=== PATIENT | female | born 2000 | race Two or more races ===

== ENCOUNTER 2023-07-11 14:36 | Outpatient (CLI) | payer BC ==
[2023-07-11 16:08] LABS: #Eosinphils 0.1 10x3/uL (0.0-0.5); #Monocytes 0.4 10x3/uL (0.0-1.1); #Neutrophils 2.8 10x3/uL (1.5-8.4); %Basophils 0.8 % (0.0-2.0); %Eosinophils 1.1 % (0.0-6.0); %Lymphocytes 38.1 % (18.0-47.0); %Monocytes 6.8 % (0.0-10.0); Hematocrit 36.7 % (34.9-44.5); Hemoglobin 12.1 g/dL (12.0-15.5); Mean Corpuscular Hemoglobin 31.9 pg (27.0-33.0); Mean Corpuscular Volume 96.8 fl (81.6-98.3); Mean Platelet Volume 12.1 fl (7.4-10.4); Platelet Count 209 10x3/uL (150-450); RBC Distribution Width 12.4 % (11.5-14.5); Red Blood Cell (RBC) Count 3.79 10x6/uL (3.90-5.03); White Blood Cell (WBC) Count 5.3 10x3/uL (3.5-10.5)
[2023-07-11 16:26] LABS: BHCG - Serum Negative (NEGATIVE); Pregs Control Background? CLEAR/WHITE (CLR/WHITE); Pregs Control Bar Appear? YES (CONTROL BAR)
[2023-07-11 16:38] LABS: ALT (SGPT) 22 U/L (8-55); AST (SGOT) 19 U/L (5-34); Albumin 4.6 g/dL (3.5-5.0); Alkaline Phosphatase 48 U/L (40-110); Anion Gap 12 mmol/L (10-20); BUN (Urea Nitrogen) 13 mg/dL (7.0-18.7); Bilirubin, Total 0.6 mg/dL (0.2-1.2); Calc. Creatinine Clearance 0 mL/min (70-130); Calcium 9.1 mg/dL (7.8-10.44); Carbon Dioxide 26 mmol/L (22-29); Chloride 106 mmol/L (98-107); Estimated GFR 104; Globulin 2.5 g/dL (2.4-3.5); Glucose 120 mg/dL (70-105); Potassium 4.2 mmol/L (3.5-5.1); Protein, Total 7.1 g/dL (6.0-8.3); Sodium 140 mmol/L (136-145)
== END 2023-07-11 14:37 | disposition home or self-care (01) ==
LOC: LABBT 14:36
PROVIDERS: ATTEND Surgery
DX: Z01.812 Encounter for preprocedural laboratory examination (principal); R59.0 Localized enlarged lymph nodes
CPT/HCPCS: 80053; 84703; 85025

== ENCOUNTER 2023-07-18 07:12 | Day surgery (SDC) | payer BC ==
[2023-07-11 14:57] VITALS: BMI 21.4
[2023-07-18] MEDS ORDERED: EPINEPHrine 1 MG/ML VIAL ONE (08:21)
[2023-07-18] MEDS ORDERED: Bupivacaine 0.25% HCL 30 ML VIAL ONE (08:21)
[2023-07-18] MEDS ORDERED: fentaNYL 50 mcg/mL 1 mL Vial ONE ×4 (08:29→11:44)
[2023-07-18] MEDS ORDERED: Midazolam HCl 2 mg/2 ml Vial ONE ×2 (08:29)
[2023-07-18] MEDS ORDERED: PROPOFOL 20 ML ONE (08:29)
[2023-07-18] MEDS ORDERED: Ondansetron PF 4 MG/2 ML Vial ONE ×2 (08:30→12:50)
[2023-07-18] MEDS ORDERED: Lidocaine 1% PF 5 ML VIAL ONE (08:30)
[2023-07-18] MEDS ORDERED: Sodium Chloride 0.9% 100 ML ONE ×2 (08:30→09:20)
[2023-07-18] MEDS ORDERED: CEFAZOLIN 2 GM VIAL ONE (08:30)
[2023-07-18] MEDS ORDERED: ePHEDrine Sulfate 50 MG/10 ML VIAL ONE (09:10)
[2023-07-18] MEDS ORDERED: Phenylephrine 10 MG/ML VIAL ONE (09:20)
[2023-07-18] MEDS ORDERED: Morphine 2 MG/ML VIAL ONE (12:50)
[2023-07-18] MEDS ORDERED: HYDROcodone/Acetaminophen 5/325 mg Tablet ONE (13:29)
[2023-07-18] MEDS ORDERED: Ondansetron ODT 4 MG TAB ONE (15:55)
== END 2023-07-18 16:00 | disposition home or self-care (01) ==
LOC: SDC 07:12
PROVIDERS: ATTEND Surgery
PROC: 07B60ZX Excision of Left Axillary Lymphatic, Open Approach, Diagnostic (ICD-10-PCS; principal; 2023-07-18)
DX: R59.0 Localized enlarged lymph nodes (principal)
CPT/HCPCS: 87070; 87102; 87205; 87206; 88184; 88305; J0171; J0665; J2250; J2272; J2371; J2405; J2704; J3010; J3490; Q0162